=== PATIENT | female | born 2000 | race Caucasian/White ===

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

== ENCOUNTER 2021-01-05 17:01 | Inpatient (IN) | payer OTHER ==
[~2021-01-05] VITALS: Ht 157.5 cm; Wt 73.5 kg
[2021-01-05 17:32] LABS: HEMOGLOBIN 10.7 gm/dl (12.3-15.3); RED BLOOD COUNT 3.67 M/UL (4.00-5.10); WHITE BLOOD COUNT 17.8 K/UL (4.5-11.0)
[2021-01-06] MEDS ORDERED: IBUPROFEN600 MG PO (20:48)
[2021-01-06] MEDS ORDERED: HYDROCODON-ACE1 EAC4 PO (20:48)
[2021-01-06] MEDS ORDERED: DOCUSATE SODIU100 MG PO (20:48)
[2021-01-07 08:23] LABS: HEMOGLOBIN 9.8 gm/dl (12.3-15.3)
[2021-01-08] MEDS ORDERED: HYDROCODON-ACE1 EAC4 PO (10:40)
== END 2021-01-08 13:11 | disposition home or self-care (01) | DRG 786 ==
LOC: GENOP 17:01 → OB 17:12
PROVIDERS: ADMIT Obstetrics & Gynecology
PROC: 0U7C7ZZ Dilation of Cervix, Via Natural or Artificial Opening (ICD-10-PCS; 2021-01-05)
PROC: 3E033VJ Introduction of Other Hormone into Peripheral Vein, Percutaneous Approach (ICD-10-PCS; 2021-01-06)
PROC: 10907ZC Drainage of Amniotic Fluid, Therapeutic from Products of Conception, Via Natural or Artificial Opening (ICD-10-PCS; 2021-01-06)
PROC: 10D00Z1 Extraction of Products of Conception, Low, Open Approach (ICD-10-PCS; principal; 2021-01-06 21:00)
PROC: 3E0234Z Introduction of Serum, Toxoid and Vaccine into Muscle, Percutaneous Approach (ICD-10-PCS; 2021-01-08)
DX: O61.0 Failed medical induction of labor (principal); O41.1230 Chorioamnionitis, third trimester, not applicable or unspecified; O75.0 Maternal distress during labor and delivery; Z3A.39 39 weeks gestation of pregnancy; Z37.0 Single live birth; Z23 Encounter for immunization; O76 Abnormality in fetal heart rate and rhythm complicating labor and delivery
CPT/HCPCS: 36415; 81001; 82800; 85014; 85018; 85025; 90471; 90707; C9113; J0290; J0690; J1170; J1580; J2001; J2210; J2274; J2405; J2590; J2795; J7120